=== PATIENT | female | born 1990 | race Two or more races ===

== ENCOUNTER 2022-05-21 15:20 | Outpatient (CLI) | payer OTHER | END 2022-05-21 15:35 | disposition home or self-care (01) | LOC: TOM 15:20 | PROVIDERS: ATTEND Surgery Plastic and Reconstructive Surgery | DX: J34.2 Deviated nasal septum (principal) ==

== ENCOUNTER 2023-01-29 10:10 | Outpatient (CLI) | payer OTHER | END 2023-01-29 10:29 | disposition home or self-care (01) | LOC: SONOGRAMA 10:10 | DX: R22.1 Localized swelling, mass and lump, neck (principal); E07.9 Disorder of thyroid, unspecified ==

== ENCOUNTER → 2024-04-01 13:26 | Outpatient (CLI) | payer OTHER | END | disposition home or self-care (01) | LOC: PRENATAL 13:26 | PROVIDERS: ATTEND Obstetrics & Gynecology Maternal & Fetal Medicine | DX: O35.9XX0 Maternal care for (suspected) fetal abnormality and damage, unspecified, not applicable or unspecified (principal); O35.3XX0 Maternal care for (suspected) damage to fetus from viral disease in mother, not applicable or unspecified; O44.02 Complete placenta previa NOS or without hemorrhage, second trimester; Z3A.19 19 weeks gestation of pregnancy ==

== ENCOUNTER 2024-06-26 08:51 | Outpatient (CLI) | payer OTHER | END 2024-06-26 08:52 | disposition home or self-care (01) | LOC: PRENATAL 08:51 | PROVIDERS: ATTEND Obstetrics & Gynecology Maternal & Fetal Medicine | DX: O26.849 Uterine size-date discrepancy, unspecified trimester (principal); O36.8199 Decreased fetal movements, unspecified trimester, other fetus; Z3A.32 32 weeks gestation of pregnancy ==